=== PATIENT | male | born 1990 | race African-American/Black ===

== ENCOUNTER 2023-09-30 16:28 | Inpatient (IN) | payer OTHER ==
[~2023-09-30] VITALS: Ht 172.7 cm; Wt 95.0 kg
[2023-09-30 17:00] LABS: BASOPHILS % (AUTO) 0.4 % (0.0-2.0); EOSINOPHILS % (AUTO) 0.7 % (1.0-6.0); LYMPHOCYTES # (AUTO) 1.6 K/uL (1.0-4.8); LYMPHOCYTES % (AUTO) 20.4 % (22.0-44.0); MEAN CORPUSCULAR HEMOGLOBIN 29.9 pg (26.0-34.0); MEAN CORPUSCULAR HGB CONC 34.9 G/dL (31.0-37.0); MEAN CORPUSCULAR VOLUME 86 fL (80-100); MONOCYTES # (AUTO) 0.6 K/uL (0.1-1.0); MONOCYTES % (AUTO) 7.6 % (2.0-9.0); NEUTROPHILS # (AUTO) 5.7 K/uL (1.8-7.7); NEUTROPHILS % (AUTO) 70.9 % (40.0-70.0); PLATELET COUNT (AUTO) 218 K/uL (150-450); RED BLOOD CELL COUNT(AUTO) 5.01 MIL/uL (4.50-5.90); RED CELL DISTRIBUTION WIDTH 14.6 % (11.5-14.5); WHITE BLOOD COUNT (AUTO) 8.1 K/uL (4.5-11.0)
[2023-09-30 17:12] LABS: ANION GAP 10 mmol/L (8-16); CALCIUM, TOTAL 8.8 mg/dL (8.8-10.5); CARBON DIOXIDE 27 mmol/L (22-29); CHLORIDE 104 mmol/L (98-107); CREATININE 1.09 mg/dL (0.60-1.30); GLOMERULAR FILTR. RATE CALC > 60 mL/min (>60); GLUCOSE,RANDOM 126 mg/dL (70-110); POTASSIUM 3.9 mmol/L (3.5-5.1); SODIUM SERUM 141 mmol/L (136-145); UREA NITROGEN, BLOOD 10 mg/dL (7-18)
[2023-09-30 17:18] LABS: ALANINE AMINOTRANSFERASE 36 U/L (12-78); ALBUMIN 3.9 g/dL (3.4-5.0); ALKALINE PHOSPHATASE 72 U/L (46-116); ASPARTATE AMINOTRANSFERASE 37 U/L (15-37); BILIRUBIN,TOTAL 0.9 mg/dL (0.1-1.0)
[2023-09-30] MEDS: HALOPERIDOL LACTATE 5 MG/ML VIAL IM ONE (17:20)
[2023-09-30] MEDS: DiphenhydrAMINE HCL 25 MG CAPSULE PO ONE (17:20)
[2023-09-30] MEDS: LORazepam 2 MG/ML VIAL IM ONE (17:20)
[2023-09-30 17:56] LABS: ACETAMINOPHEN 14 mcg/mL (10-30); LIPASE < 10 U/L (16-77)
[2023-09-30] MEDS: RINGERS SOLUTION,LACTATED 1,000 ML IV SCH (19:00)
[2023-09-30] MEDS: DOCUSATE SODIUM 100 MG CAPSULE PO SCH (19:02)
[2023-09-30 20:42] LABS: COVID AG,FIA SOURCE NASAL SWAB
[2023-09-30 20:53] LABS: SARS-COV2 (COVID) ANTIGEN,FIA Negative (Negative)
[2023-10-01] MEDS: HEPARIN SODIUM,PORCINE 5,000 UNITS/ML VIAL SQ SCH
[2023-10-01 05:14] VITALS: BP 108/86; PULSE 96; RESP 20; TEMP 97.4
[2023-10-01 07:02] LABS: ANION GAP 10 mmol/L (8-16); CALCIUM, TOTAL 8.3 mg/dL (8.8-10.5); CARBON DIOXIDE 26 mmol/L (22-29); CHLORIDE 104 mmol/L (98-107); CREATININE 1.11 mg/dL (0.60-1.30); GLOMERULAR FILTR. RATE CALC > 60 mL/min (>60); GLUCOSE,RANDOM 109 mg/dL (70-110); POTASSIUM 4.4 mmol/L (3.5-5.1); SODIUM SERUM 140 mmol/L (136-145); UREA NITROGEN, BLOOD 9 mg/dL (7-18)
[2023-10-01 07:13] LABS: HEMATOCRIT 41.3 % (41-53); HEMOGLOBIN 14.6 g/dL (13.5-17.5); MEAN CORPUSCULAR HEMOGLOBIN 30.4 pg (26.0-34.0); MEAN CORPUSCULAR HGB CONC 35.4 G/dL (31.0-37.0); MEAN CORPUSCULAR VOLUME 86 fL (80-100); PLATELET COUNT (AUTO) 210 K/uL (150-450); RED CELL DISTRIBUTION WIDTH 14.3 % (11.5-14.5); WHITE BLOOD COUNT (AUTO) 5.4 K/uL (4.5-11.0)
[2023-10-01] MEDS: PANTOPRAZOLE SODIUM 40 MG DR TABLET PO SCH (08:07)
[2023-10-01 08:08] VITALS: BP 118/74; PULSE 74; RESP 20; TEMP 97.9
[2023-10-01 08:17] LABS: BAND NEUTROPHILS % (MANUAL) 2 % (0-5); LYMPHOCYTES % (MANUAL) 48 % (22-44); MONOCYTES % (MANUAL) 10 % (2-9); SEGMENTED NEUTROPHILS % 40 % (40-70); TOTAL CELLS COUNTED 100
[2023-10-01 08:18] LABS: RBC MORPHOLOGY COMMENT NORMAL RBC MORPH
[2023-10-01] MEDS: OLANZapine 5 MG TABLET PO SCH (10:15)
[2023-10-01 19:50] VITALS: BP 138/87; PULSE 105; RESP 20; TEMP 99
[2023-10-01] MEDS: OLANZapine 10 MG TABLET PO SCH (20:31)
[2023-10-01 22:23] LABS: APPEARANCE,URINE CLEAR (CLEAR); BILIRUBIN,URINE NEGATIVE (NEGATIVE); COLOR,URINE LIGHT YELLOW (YELLOW); GLUCOSE, URINE (UA) NEGATIVE (NEGATIVE); KETONES,URINE NEGATIVE (NEGATIVE); LEUKOCYTE ESTERASE ,URINE NEGATIVE (NEGATIVE); NITRATE,URINE NEGATIVE (NEGATIVE); OCCULT BLOOD,URINE NEGATIVE (NEGATIVE); PH,URINE 5.5 (5.0-8.0); PH,URINE DRUG SCREEN 5.5 (5.0-8.0); PROTEIN,URINE NEGATIVE (NEGATIVE); SPECIFIC GRAVITIY, URINE 1.009 (1.003-1.030); UROBILINOGEN,URINE <=1.0 mg/dL (<=1.0)
[2023-10-01 22:29] LABS: ALCOHOL, URINE DRUG SCREEN NEGATIVE (NEGATIVE); AMPHET/METH SCREEN,URINE NEGATIVE (NEGATIVE); BARBITURATE SCREEN, URINE NEGATIVE (NEGATIVE); BENZODIAZEPINES SCREEN,URINE NEGATIVE (NEGATIVE); CANNABINOID SCREEN,URINE NEGATIVE (NEGATIVE); COCAINE SCREEN,URINE NEGATIVE (NEGATIVE); METHADONE SCREEN, URINE NEGATIVE (NEGATIVE); OPIATE SCREEN,URINE NEGATIVE (NEGATIVE); PHENCYCLIDINE SCREEN,URINE NEGATIVE (NEGATIVE)
[2023-10-01 22:33] LABS: BACTERIA,URINE None Seen /HPF (None Seen); RBC,URINE 0-2 /HPF (0-2); SQUAMOUS EPITHELIAL CELL,UR Rare /LPF (None Seen); WBC,URINE 0-2 /HPF (0-5)
[2023-10-02 02:59] VITALS: BP 130/80; PULSE 103; RESP 20; TEMP 98.8
[2023-10-02 09:01] VITALS: BP 132/77; PULSE 87; RESP 19; TEMP 98.3
[2023-10-02] MEDS: MIRTAZAPINE 15 MG TABLET PO SCH (21:21)
[2023-10-02] MEDS: ACETAMINOPHEN 325 MG TABLET PO PRN (21:22)
[2023-10-03 08:22] VITALS: BP 125/73; PULSE 70; RESP 18; TEMP 98
[2023-10-03] MEDS ORDERED: MIRT-89 PO (11:39)
[2023-10-03] MEDS ORDERED: OLAN5TAB52 PO (11:40)
[2023-10-03] MEDS ORDERED: OLAN10TA74 PO (11:41)
== END 2023-10-03 16:05 | DRG 918 ==
LOC: EMS 16:30 → 6S 20:16
PROVIDERS: ADMIT Internal Medicine; ATTEND Internal Medicine
DX: T39.392A Poisoning by other nonsteroidal anti-inflammatory drugs [NSAID], intentional self-harm, initial encounter (principal); F33.2 Major depressive disorder, recurrent severe without psychotic features; R45.851 Suicidal ideations; F11.10 Opioid abuse, uncomplicated; E66.9 Obesity, unspecified; F25.1 Schizoaffective disorder, depressive type; Z20.822 Contact with and (suspected) exposure to COVID-19; F41.9 Anxiety disorder, unspecified; Z88.6 Allergy status to analgesic agent; Z88.5 Allergy status to narcotic agent; Z88.8 Allergy status to other drugs, medicaments and biological substances; Y92.89 Other specified places as the place of occurrence of the external cause; Z68.31 Body mass index [BMI] 31.0-31.9, adult
CPT/HCPCS: 80048; 80053; 80307; 81001; 83690; 83735; 85025; 99285; G0480; G0481; J1630; J1644; J2060

== ENCOUNTER 2024-05-16 23:25 | Emergency (ER) | payer OTHER ==
[~2024-05-16] VITALS: Ht 180.3 cm; Wt 95.5 kg
[~2024-05-16 23:25] MED LIST: MIRT-89 PO; OLAN10TA74 PO; OLAN5TAB52 PO
[2024-05-16 23:32] VITALS: TEMP 97.8
[2024-05-16] MEDS: AMOX TR/POT CLAV 875 MG/125 MG TABLET PO ONE (23:56)
[2024-05-17 00:15] VITALS: BP 111/64; PULSE 71; RESP 15; O2SAT 100
== END 2024-05-17 00:17 | disposition home or self-care (01) ==
LOC: EMS 23:26
DX: S61.251A Open bite of left index finger without damage to nail, initial encounter (principal); J45.909 Unspecified asthma, uncomplicated; F20.9 Schizophrenia, unspecified; F32.A Depression, unspecified; F41.9 Anxiety disorder, unspecified; Z88.5 Allergy status to narcotic agent; Z88.6 Allergy status to analgesic agent; W54.0XXA Bitten by dog, initial encounter; Y93.89 Activity, other specified; Y92.89 Other specified places as the place of occurrence of the external cause; Y99.8 Other external cause status
CPT/HCPCS: 99283